=== PATIENT | male | born 1950 | race American Indian/Alaskan Native ===

== ENCOUNTER 2018-12-17 19:37 | Emergency (ER) | payer MEDICARE ==
--- NOTE | 2018-12-17 20:32 | Emergency Department Report ---
Chief Complaint: Chest Pain Stated Complaint: CHEST PAIN/SOB/CHILLS Time Seen by Provider: 12/17/18 20:29 - HPI History of Present Illness: Pt presents with right sided CP that began two days ago (+) SOB, nausea cough with mucus production (+) chills, rhinorrhea, congestion no emesis no BLE edema no recent long car plane ride, no recent surgery, no immobilization PMHx HTN, hypothyroid no cardiac hx mother with [place] at 78 former smoker quit 20 years ago - Exam Vital Signs: Vital Signs 12/17/18 19:59 Temperature 98.2 F Pulse Rate 94 H Respiratory 18 Rate Blood Pressure 125/65 O2 Sat by Pulse 97 Oximetry MSE screening note: Focused history performed Due to findings the following was ordered: CXR, labs, EKG ED Disposition for MSE Condition: Stable
[2018-12-17 20:50] LABS: Hematocrit 37.6 % (35.5-45.6); Hemoglobin 12.9 gm/dl (11.8-15.2); Mean Corpuscular HGB Conc 34 % (32-34); Mean Corpuscular Volume 86 fl (84-94); Platelet Count 189 K/mm3 (140-440); Red Blood Count 4.39 M/mm3 (3.65-5.03); Red Cell Distribution Width 15.5 % (13.2-15.2)
[2018-12-17 21:02] LABS: INR 1.01 (0.87-1.13)
[2018-12-17 21:09] LABS: Alanine Aminotransferase 16 units/L (7-56); Albumin 3.6 g/dL (3.9-5); BUN/Creatinine Ratio 15; Blood Urea Nitrogen 25 mg/dL (9-20); Calcium 8.9 mg/dL (8.4-10.2); Hemolysis Index 32
[2018-12-17 21:24] LABS: Anisocytosis 1+; Basophils % (Manual) 0 % (0.0-1.8); Eosinophils % (Manual) 0 % (0.0-4.3); Platelet Estimate Consistent w Auto; Poikilocytosis 1+; Total Cells Counted 100
--- NOTE | 2018-12-17 21:28 | XRay Report ---
PROCEDURE: XR CHEST ROUTINE 2V HISTORY: Chest Pain FINDINGS: Frontal and lateral views of the chest were acquired. The heart is top normal in size. Ther e is no evidence of congestive heart failure. There is no acute consolidative pulmonary infiltrate. IMPRESSION: The heart is top normal in size No consolidative pulmonary infiltrate This document is electronically signed by Pedro Spears MD., December 17 2018 09:26:37 PM ET
[2018-12-17] MEDS ORDERED: DELTASONE PO STA (22:00)
[2018-12-17] MEDS ORDERED: DUONEB *Not for PRN Use IH ONE (22:00)
--- NOTE | 2018-12-18 00:33 | Emergency Department Report ---
- General Chief Complaint: Chest Pain Stated Complaint: CHEST PAIN/SOB/CHILLS Time Seen by Provider: 12/17/18 20:29 Source: patient Mode of arrival: Ambulatory Limitations: No Limitations - History of Present Illness Initial Comments: 68-year-old male present according history of high for thyroidism presents emergency department complaining of a 2 day history of excessive cough, chest congestion with yellow and green mucus production, chills and sinus congestion. Coughing spells does cause some pain to the right side of the chest off and on, but he reports no hemoptysis, no hematemesis, no hematochezia, no nausea, vomiting, no syncope or presyncope. Denies any foreign travel, any lower extremity swelling or calf pain MD Complaint: cough, rhinorrhea, nasal congestion -: days(s) (2) Quality: dull, aching Consistency: constant Improves With: nothing Worsens With: nothing Associated Symptoms: denies other symptoms Treatments Prior to Arrival: none - Related Data Previous Rx's Medication Instructions Recorded Last Taken Type ALBUTEROL Inhaler (OR & NICU) 2 puff IH QID PRN #1 inhalation 12/18/18 Unknown Rx [ProAir HFA Inhaler] Azithromycin [Zithromax] 500 mg PO QDAY #3 tablet 12/18/18 Unknown Rx guaiFENesin/CODEINE [Robitussin AC] 5 ml PO Q6H PRN #120 ml 12/18/18 Unknown Rx predniSONE [Prednisone] 50 mg PO DAILY #5 tablet 12/18/18 Unknown Rx Allergies Allergy/AdvReac Type Severity Reaction Status Date / Time No Known Allergies Allergy Unverified 12/17/18 19:59 ED Review of Systems ROS: Stated complaint: CHEST PAIN/SOB/CHILLS Other details as noted in HPI Constitutional: denies: chills, fever Eyes: denies: eye pain, eye discharge, vision change ENT: denies: ear pain, throat pain Respiratory: cough. denies: shortness of breath, wheezing Cardiovascular: denies: chest pain, palpitations Endocrine: no symptoms reported Gastrointestinal: denies: abdominal pain, nausea, diarrhea Genitourinary: denies: urgency, dysuria Musculoskeletal: denies: back pain, joint swelling, arthralgia Skin: denies: rash, lesions Neurological: denies: headache, weakness, paresthesias Psychiatric: denies: anxiety, depression Hematological/Lymphatic: denies: easy bleeding, easy bruising ED Past Medical Hx - Past Medical History Hx Hypertension: Yes Additional medical history: hypothyroidism - Surgical History Additional Surgical History: hip - Social History Smoking Status: Former Smoker Substance Use Type: None - Medications Home Medications: Home Medications Medication Instructions Recorded Confirmed Last Taken Type ALBUTEROL Inhaler (OR & NICU) 2 puff IH QID PRN #1 inhalation 12/18/18 Unknown Rx [ProAir HFA Inhaler] Azithromycin [Zithromax] 500 mg PO QDAY #3 tablet 12/18/18 Unknown Rx guaiFENesin/CODEINE [Robitussin AC] 5 ml PO Q6H PRN #120 ml 12/18/18 Unknown Rx predniSONE [Prednisone] 50 mg PO DAILY #5 tablet 12/18/18 Unknown Rx ED Physical Exam - General Limitations: No Limitations General appearance: alert, in no apparent distress - Head Head exam: Present: atraumatic, normocephalic - Eye Eye exam: Present: normal appearance, PERRL, EOMI Pupils: Present: normal accommodation - ENT ENT exam: Present: normal exam, mucous membranes moist, other (nasal congestion bilaterally) - Neck Neck exam: Present: normal inspection - Respiratory Respiratory exam: Present: normal lung sounds bilaterally. Absent: respiratory distress - Cardiovascular Cardiovascular Exam: Present: regular rate, normal rhythm. Absent: systolic murmur, diastolic murmur, rubs, gallop - GI/Abdominal GI/Abdominal exam: Present: soft, normal bowel sounds - Rectal Rectal exam: Present: deferred - Extremities Exam Extremities exam: Present: normal inspection - Back Exam Back exam: Present: normal inspection - Neurological Exam Neurological exam: Present: alert, oriented X3 - Psychiatric Psychiatric exam: Present: normal affect, normal mood - Skin Skin exam: Present: warm, dry, intact, normal color. Absent: rash ED Course Vital Signs 12/17/18 12/17/18 19:59 20:29 Temperature 98.2 F 98.2 F Pulse Rate 94 H 92 H Respiratory 18 18 Rate Blood Pressure 125/65 125/65 O2 Sat by Pulse 97 97 Oximetry ED Medical Decision Making - Lab Data Result diagrams: 12/17/18 20:35 12/17/18 20:35 Critical care attestation.: If time is entered above; I have spent that time in minutes in the direct care of this critically ill patient, excluding procedure time. ED Disposition Clinical Impression: Cough, Bronchitis, Chest pain Disposition: DC-01 TO HOME OR SELFCARE Is pt being admited?: No Does the pt Need Aspirin: No Condition: Stable Instructions: Chronic Bronchitis (ED), Chest Pain (ED), Acute Bronchitis (ED) Referrals: KELVIN QUICK JR, MD [Primary Care Provider] - 3-5 Days
[2018-12-18 19:40] VITALS: BP 125/65
== END 2018-12-18 00:46 | disposition home or self-care (01) ==
LOC: ED 19:37
DX: J40 Bronchitis, not specified as acute or chronic (principal); I10 Essential (primary) hypertension; E03.9 Hypothyroidism, unspecified; Z87.891 Personal history of nicotine dependence
CPT/HCPCS: 36415; 71046; 80053; 84484; 85007; 85025; 85610; 85730; 93005; 93010; 94640; 99284; J7512